=== PATIENT | female | born 1995 | race Caucasian/White ===

== ENCOUNTER → 2024-10-04 | Outpatient (CLI) | payer OTHER ==
--- NOTE | 2024-10-12 22:23 | EST ---
EXERCISE STRESS CLINICAL INFORMATION: Baseline rhythm is a sinus mechanism. The average rate 97 beats per minute, minimum of 54, maximum 176 beats per minute. No atrial fibrillation was noted. Ventricular ectopic activity burden was less than 1%. Symptoms of chest discomfort, shortness of breath, heart racing correlated with sinus mechanism and sinus tachycardia. No pauses were noted. MMODL / IJN: [id number] /
== END | disposition home or self-care (01) ==
LOC: RADECHMAIN 07:18
PROVIDERS: ATTEND Family Medicine
DX: R00.2 Palpitations (principal); R00.0 Tachycardia, unspecified
CPT/HCPCS: 93270